=== PATIENT | female | born 1960 | race Caucasian/White ===

== ENCOUNTER 2017-03-14 22:10 | Emergency (ER) | payer OTHER ==
[2017-03-14 23:49] VITALS: BP 111/72; PULSE 76; TEMP 98.2; BMI 23.6
[2017-03-14] MEDS ORDERED: IBUPROFEN 600 MG TABLET (FP) PO STA (23:53)
--- NOTE | 2017-03-14 23:54 | PDOC ---
History of Present Illness - General History Source: Patient <Jerry Rm - Last Filed: 03/14/17 23:55> - General History Source: Patient Exam Limitations: No Limitations - History of Present Illness Initial Comments: 03/15/17 00:05 The patient is a 57 year old female presenting with her sister, with no significant past medical history, who presents to the emergency department with bilateral wrist pain and right hip pain after an incident at work today. 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 She describes her pain as ranging from mild to moderate, without radiation. She notes that the pain is exacerbated when she moves in certain directions. She denies taking any kind of medications. The patient denies chest pain, shortness of breath, headache and dizziness. Denies fever, chills, nausea, vomit, diarrhea and constipation. Denies dysuria, frequency, urgency and hematuria. Allergies: None Past surgical history: None reported Social history: No alcohol, tobacco or drug use reported <Jerry Amado - Last Filed: 03/15/17 00:06> - General Chief Complaint: Pain, Acute Stated Complaint: INJURY Time Seen by Provider: 03/14/17 23:50 Past History - Past Medical History COPD: No Other medical history: Denies - Immunization History Immunization Up to Date: No - Suicide/Smoking/Psychosocial Hx Smoking History: Never smoked Have you smoked in the past 12 months: No Number of Cigarettes Smoked Daily: 0 Information on smoking cessation initiated: No Hx Alcohol Use: No Drug/Substance Use Hx: No Substance Use Type: None <Jerry Rm - Last Filed: 03/14/17 23:55> <Jerry Amado - Last Filed: 03/15/17 00:06> - Past Medical History Allergies/Adverse Reactions: Allergies Allergy/AdvReac Type Severity Reaction Status Date / Time No Known Allergies Allergy Verified 03/14/17 23:49 Home Medications: Ambulatory Orders NK [No Known Home Medication] 03/14/17 Review of Systems - Review of Systems Able to Perform ROS?: Yes Comments:: 03/15/17 00:05 GENERAL/CONSTITUTIONAL: No fever or chills. No weakness. HEAD, EYES, EARS, NOSE AND THROAT: No change in vision. No ear pain or discharge. No sore throat.- CARDIOVASCULAR: No chest pain or shortness of breath RESPIRATORY: No cough, wheezing, or hemoptysis. GASTROINTESTINAL: No nausea, vomiting, diarrhea or constipation. GENITOURINARY: No dysuria, frequency, or change in urination. MUSCULOSKELETAL:(+) Right hip pain and bilateral wrist pain. No joint or muscle swelling or pain. No neck or back pain. SKIN: No rash NEUROLOGIC: No headache, vertigo, loss of consciousness, or change in strength/ sensation. ENDOCRINE: No increased thirst. No abnormal weight change HEMATOLOGIC/LYMPHATIC: No anemia, easy bleeding, or history of blood clots. ALLERGIC/IMMUNOLOGIC: No hives or skin allergy. <Jerry Amado - Last Filed: 03/15/17 00:06> *Physical Exam - Vital Signs Last Vital Signs Temp Pulse Resp BP Pulse Ox 98.2 F 76 18 111/72 98 03/14/17 23:42 03/14/17 23:42 03/14/17 23:42 03/14/17 23:42 03/14/17 23:42 <Jerry Rm - Last Filed: 03/14/17 23:55> - Vital Signs Last Vital Signs Temp Pulse Resp BP Pulse Ox 98.2 F 76 18 111/72 98 03/14/17 23:42 03/14/17 23:42 03/14/17 23:42 03/14/17 23:42 03/14/17 23:42 - Physical Exam Comments: 03/15/17 00:05 GENERAL: Awake, alert, and fully oriented, in no acute distress HEAD: No signs of trauma, normocephalic, atraumatic EYES: PERRLA, EOMI, sclera anicteric, conjunctiva clear ENT: Auricles normal inspection, hearing grossly normal, nares patent, oropharynx clear without exudates. Moist mucosa NECK: Normal ROM, supple, no lymphadenopathy, JVD, or masses LUNGS: No distress, speaks full sentences, clear to auscultation bilaterally HEART: Regular rate and rhythm, normal S1 and S2, no murmurs, rubs or gallops, peripheral pulses normal and equal bilaterally. ABDOMEN: Soft, nontender, normoactive bowel sounds. No guarding, no rebound. No masses EXTREMITIES : Normal inspection, Normal range of motion, no edema. No clubbing or cyanosis. NEUROLOGICAL: Cranial nerves II through XII grossly intact. Normal speech, normal gait, no focal sensorimotor deficits SKIN: Warm, Dry, normal turgor, no rashes or lesions noted. <Jerry Amado - Last Filed: 03/15/17 00:06> Medical Decision Making - Medical Decision Making 03/14/17 23:59 Dr. Rm: The scribe's documentation has been prepared under my direction and personally reviewed by me in its entirery. I confirm that the note above accurately reflects all work, treatment, procedures, and medical decision making performed by me. 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 No bony deformity. No joint laxity. Rx Motrin 600mg <Jerry Rm - Last Filed: 03/14/17 23:55> *DC/Admit/Observation/Transfer - Discharge Dispostion Admit: No <Jerry Rm - Last Filed: 03/14/17 23:55> - Attestations Scribe Attestion: 03/15/17 00:06 Documentation prepared by Jerry Amado, acting as medical coding specialist for Jerry Rm MD <Jerry Amado - Last Filed: 03/15/17 00:06> Diagnosis at time of Disposition: Wrist sprain Qualifiers: Encounter type: initial encounter Laterality: unspecified laterality Qualified Code(s): S63.509A - Unspecified sprain of unspecified wrist, initial encounter - Discharge Dispostion Disposition: HOME Condition at time of disposition: Fair - Referrals Referrals: Anam Rodriguez MD [Staff Physician] - - Patient Instructions Printed Discharge Instructions: DI for Wrist Sprain Additional Instructions: Rest and ice wrists as much as possible. Use clive wraps for comfort. Return if any problems - Post Discharge Activity Forms/Work/School Notes: Back to Work
[2017-03-15] MEDS ORDERED: IBUPROFEN 600 MG TABLET (FP) PO ONE (00:03)
== END 2017-03-15 00:22 | disposition home or self-care (01) ==
LOC: SUPCPDRO 22:10 → JER 22:10
DX: S63.501A Unspecified sprain of right wrist, initial encounter (principal); S63.502A Unspecified sprain of left wrist, initial encounter; S73.191A Other sprain of right hip, initial encounter; X50.0XXA Overexertion from strenuous movement or load, initial encounter; Y93.F2 Activity, caregiving, lifting; Y92.128 Other place in nursing home as the place of occurrence of the external cause; Y99.0 Civilian activity done for income or pay
CPT/HCPCS: 99283-25

== ENCOUNTER 2018-12-02 19:59 | Emergency (ER) | payer SELFPAY ==
[2018-12-02 20:09] VITALS: BP 122/78; PULSE 73; TEMP 98.2; BMI 21.7
[2018-12-02] MEDS ORDERED: SODIUM CHLORIDE 0.9% 1000 ML INFUS.BAG IV ONE (20:15)
[2018-12-02] MEDS ORDERED: ACETAMINOPHEN 1000 MG/100 ML VIAL (NON FORMULARY) IVPB ONE (20:15)
--- NOTE | 2018-12-02 20:22 | PDOC ---
Documentation entered by Arminda Gamino SCRIBE, acting as scribe for Tesfaye Murphy MD. Tesfaye Murphy MD: This documentation has been prepared by the Stevenson contreras Sammi, SCRIBE, under my direction and personally reviewed by me in its entirety. I confirm that the documentation accurately reflects all work, treatment, procedures, and medical decision making performed by me. Attending Attestation - HPI HPI: 12/03/18 07:01 Chart opened in error, see other chart - Physicial Exam PE: 12/03/18 07:01 Chart opened in error, see other chart - Medical Decision Making 12/03/18 07:01 Chart opened in error, see other chart
--- NOTE | 2018-12-02 20:52 | PDOC ---
Documentation entered by Arminda Gamino SCRIBE, acting as scribe for Tesfaye Murphy MD. Tesfaye Murphy MD: This documentation has been prepared by the Stevenson [employer] Sammi, SCRIBE, under my direction and personally reviewed by me in its entirety. I confirm that the documentation accurately reflects all work, treatment, procedures, and medical decision making performed by me. History of Present Illness - General Chief Complaint: Lethargy Stated Complaint: HEAT EXHAUSTION Time Seen by Provider: 12/02/18 20:13 History Source: Patient Exam Limitations: No Limitations - History of Present Illness Initial Comments: 12/02/18 20:35 The patient is a 58 year old female, with no significant PMH, who presents to the emergency department for evaluation of fatigue, dizziness, and SOB which has improved. The patient reports she was sitting in her hot car for a long period of time when she began to feel faint and dizzy. She states she drank some water after with little relief. The patient denies chest pain. Denies fever, chills, nausea, vomiting, diarrhea and constipation. Allergies: NKA Past History - Past Medical History Allergies/Adverse Reactions: Allergies Allergy/AdvReac Type Severity Reaction Status Date / Time No Known Allergies Allergy Verified 03/14/17 23:49 Home Medications: Ambulatory Orders NK [No Known Home Medication] 03/14/17 COPD: No - Immunization History Immunization Up to Date: No - Suicide/Smoking/Psychosocial Hx Smoking History: Unknown if ever smoked Have you smoked in the past 12 months: No Number of Cigarettes Smoked Daily: 0 Information on smoking cessation initiated: No Hx Alcohol Use: No Drug/Substance Use Hx: No Substance Use Type: None Review of Systems - Review of Systems Comments:: 12/02/18 20:38 A complete review of 10 out of 10 review of systems is taken and is negative apart from what is previously mentioned below and in the HPI. *Physical Exam - Vital Signs Last Vital Signs Temp Pulse Resp BP Pulse Ox 98.2 F 73 14 122/78 100 12/02/18 20:02 12/02/18 20:02 12/02/18 20:02 12/02/18 20:02 12/02/18 20:02 - Physical Exam Comments: 12/02/18 20:38 Vitals: Triage vital signs reviewed General Appearance: No acute distress, well nourished, well developed Head: Atraumatic Eyes: Pupils equal reactive round, extraocular movement intact Throat: Posterior oropharynx without erythema, mucous membranes moist Cardiac: Regular rate and rhythm, no murmurs, no rubs, no gallops Lungs: Clear to auscultation bilateral, good air movement bilaterally Abdomen: Soft, nondistended, normal bowel sounds, nontender to palpation Extremities: Full range of motion to all extremities, no cyanosis, clubbing, or edema Skin: Warm and dry, no rashes or lesions, no rash, no petechiae Neuro: AOX3; Cranial Nerves 2-12 grossly intact, Strength intact to all extremities, Sensation intact to all extremities Psych: Normal mood, normal affect ED Treatment Course - LABORATORY CBC & Chemistry Diagram: 12/02/18 20:45 12/02/18 20:45 Medical Decision Making - Medical Decision Making 12/02/18 21:26 Well-appearing no apparent distress history examination consistent with heat exhaustion after sitting in a very hot and overheated car patient began to feel lightheaded and dizzy after leaving the car symptoms resolved no loss of consciousness no cardiac symptoms noted. EKG performed upon arrival to the emergency department demonstrates normal sinus rhythm at [address] elevations no T-wave inversions no evidence of WPW, Brugada, prolonged QT Laboratory analysis performed unremarkable status post IV fluids patient feels much better now asking to go home She'll follow-up with the primary care provider this week. She'll return to the emergency department for any severe returning symptoms or for any concerns. Findings, the need for follow-up and strict return instructions discussed with patient. *DC/Admit/Observation/Transfer Diagnosis at time of Disposition: Lightheaded - Discharge Dispostion Disposition: HOME Condition at time of disposition: Good Decision to Admit order: No - Referrals Referrals: [facility] [place] [Provider Group] - Patient Instructions Printed Discharge Instructions: Heat Exhaustion and Heat Stroke Additional Instructions: Continue to drink plenty of fluids. Follow-up with her primary care provider or the clinic this week. Return to ED for any severe worsening symptoms or for any concerns. - Post Discharge Activity
[2018-12-02 20:54] LABS: BASO % 0.3 % (0-2.0); HEMATOCRIT 39.8 % (32.4-45.2); HEMOGLOBIN 13.3 GM/dl (10.7-15.3); LYMPH % 41.5 % (8-40); MCH 28.2 pg (25.7-33.7); MCHC 33.4 g/dl (32.0-36.0); MEAN CELL VOLUME 84.5 fl (80-96); MEAN PLT VOLUME 8.3 fl (7.5-11.1); MONO % 9.8 % (3.8-10.2); NEUT % 47.4 % (42.8-82.8); PLATELET COUNT 304 K/MM3 (134-434); RBC 4.71 M/mm3 (3.60-5.2); RDW 12.6 % (11.6-15.6)
[2018-12-02 21:12] LABS: ALBUMIN 4.3 g/dl (3.4-5.0); BILIRUBIN,TOTAL 0.8 mg/dl (0.2-1); CALCIUM 9.4 mg/dl (8.5-10); POTASSIUM 3.6 mmol/L (3.5-5.1); TOT PROT 7.5 g/dl (6.4-8.2)
--- NOTE | 2018-12-03 09:25 | EKG ---
Test Reason : Blood Pressure : / mmHG Vent. Rate : 086 BPM Atrial Rate : 086 BPM P-R Int : 158 ms QRS Dur : 076 ms QT Int : 394 ms P-R-T Axes : 039 013 029 degrees QTc Int : 471 ms NORMAL SINUS RHYTHM NORMAL ECG NO PREVIOUS ECGS AVAILABLE Confirmed by GERRY RODRIGUEZ MD ([id number]) on 12/03/2018 9:25:09 AM Referred By: DANIELLA Confirmed By:GERRY RORDIGUEZ MD
== END 2018-12-02 21:50 | disposition home or self-care (01) ==
LOC: FER 19:59
PROC: 3E033NZ Introduction of Analgesics, Hypnotics, Sedatives into Peripheral Vein, Percutaneous Approach (ICD-10-PCS; principal; 2018-12-02)
PROC: 3E0337Z Introduction of Electrolytic and Water Balance Substance into Peripheral Vein, Percutaneous Approach (ICD-10-PCS; 2018-12-02)
DX: R42 Dizziness and giddiness (principal)
CPT/HCPCS: 36415; 80053; 82550; 84484; 85025; 93005; 99285-25; J0131; J7030

== ENCOUNTER 2024-09-21 18:47 | Emergency (ER) | payer OTHER ==
[2024-09-21 19:05] VITALS: BP 110/60; PULSE 92; RESP 16; TEMP 97.3; BMI 20.6
[2024-09-21] MEDS ORDERED: CycloBENZAprine HCL 5 MG TABLET ONE (20:22)
[2024-09-21] MEDS: DICLOFENAC SODIUM 25 MG TABLET.DR PO ONE (20:30)
[2024-09-21] MEDS: CycloBENZAprine HCL 10 MG TABLET (FP) PO ONE (20:30)
== END 2024-09-21 20:34 | disposition home or self-care (01) ==
LOC: FER 18:47
DX: S29.012A Strain of muscle and tendon of back wall of thorax, initial encounter (principal); X50.0XXA Overexertion from strenuous movement or load, initial encounter; Y99.0 Civilian activity done for income or pay
CPT/HCPCS: 71045-TC-FY; 99283-25